=== PATIENT | female | born 1975 | race Asian ===

== ENCOUNTER 2017-01-07 07:56 | Emergency (ER) | payer OTHER ==
[~2017-01-07] VITALS: Ht 160 cm; Wt 96.2 kg
[2017-01-07 08:00] VITALS: BP 119/75; TEMP 98
== END 2017-01-07 08:20 | disposition home or self-care (01) ==
LOC: ED 07:56
DX: K08.89 Other specified disorders of teeth and supporting structures (principal)
CPT/HCPCS: 99281

== ENCOUNTER 2017-01-23 08:40 | Outpatient (CLI) | payer OTHER | END 2017-01-23 19:21 | disposition home or self-care (01) | LOC: MAMMO 08:40 | DX: Z12.31 Encounter for screening mammogram for malignant neoplasm of breast (principal) ==